=== PATIENT | male | born 1990 | race Caucasian/White ===

== ENCOUNTER 2017-02-03 13:43 | Emergency (ER) | payer BC, OTHER ==
--- NOTE | 2017-02-03 14:03 | ED ---
Abdominal Pain/Male - HPI Summary HPI Summary: 26M presents with sudden onset of mid epigastric pain today. He states it started after he was eating breakfast and it started right after. The pain was sharp and lasted 30-60secs. He has never had this pain before. He denies any chest pain or SOB. pain did not radiate anywhere. staying still helped. He had normal BM today. He admits to nausea with pain. He denies any vomiting, diarrhea or constipation. No dysuria, fever, flank pain, urgency, frequency or hematuira. no previous abdominal surgeries. no history of HTN or DM. does not smoke. no recent travel or surgeries. dad had heart attack at 32. He took 325 of ASA and the pain resolved. - History of Current Complaint Chief Complaint: EDAbdPain Stated Complaint: ABD PAIN Time Seen by Provider: 02/03/17 13:54 Pain Intensity: 2 - Allergies/Home Medications Allergies/Adverse Reactions: Allergies Allergy/AdvReac Type Severity Reaction Status Date / Time No Known Allergies Allergy Verified 02/03/17 13:49 PMH/Surg Hx/FS Hx/Imm Hx Endocrine/Hematology History: Denies: Hx Anticoagulant Therapy, Hx Diabetes Cardiovascular History: Denies: Hx Hypertension Infectious Disease History: No Infectious Disease History: Denies: Traveled Outside the [place] in Last 30 Days - Family History Known Family History: Positive: Cardiac Disease - Social History Alcohol Use: Occasionally Substance Use Type: Reports: Marijuana Smoking Status (MU): Never Smoked Tobacco Review of Systems Negative: Fever Negative: Chest Pain Negative: Shortness Of Breath Positive: Abdominal Pain - epigastric, Nausea. Negative: Vomiting All Other Systems Reviewed And Are Negative: Yes Physical Exam Triage Information Reviewed: Yes Vital Signs On Initial Exam: Initial Vitals Temp Pulse Resp BP Pulse Ox 98.1 F 86 17 141/80 98 02/03/17 13:47 02/03/17 13:47 02/03/17 13:47 02/03/17 13:47 02/03/17 13:47 Vital Signs Reviewed: Yes Appearance: Positive: Well-Appearing Skin: Positive: Warm, Dry Head/Face: Positive: Normal Head/Face Inspection Eyes: Positive: Normal, Conjunctiva Clear Respiratory/Lung Sounds: Positive: Clear to Auscultation, Breath Sounds Present , Other - nontender chest Cardiovascular: Positive: Normal, RRR Abdomen Description: Positive: Nontender, Soft Bowel Sounds: Positive: Present Musculoskeletal: Positive: Normal Neurological: Positive: Normal Psychiatric: Positive: Normal - Tania Coma Scale Coma Scale Total: 15 Diagnostics - Vital Signs Vital Signs Temp Pulse Resp BP Pulse Ox 02/03/17 13:47 98.1 F 86 17 141/80 98 - Laboratory Result Diagrams: 02/03/17 14:10 02/03/17 14:10 Lab Statement: Any lab studies that have been ordered have been reviewed, and results considered in the medical decision making process. - Ultrasound No standard instances Ultrasound Interpretation: Positive (See Comments) - IMPRESSION: 1. NO SONOGRAPHIC EVIDENCE OF GALLBLADDER STONES OR ACUTE INFLAMMATORY CHANGE OF THE GALLBLADDER. 2. AT THE RIGHT HEPATIC DOME THERE IS WHAT APPEARS TO BE A 6.8 CM CYST WITH A MOBILE 2.8 CM ECHOGENIC FOCUS IN THE LUMEN. A BENIGN ETIOLOGY IS FAVORED BUT THERE IS NO PRIOR IMAGING OF THE LIVER TO COMMENT ON CHRONICITY. CLINICALLY WARRANTED FURTHER CHARACTERIZATION COULD BE MADE WITH EITHER NONEMERGENT MULTIPHASE CONTRAST-ENHANCED MRI OR CT. Ultrasound Interpretation Completed By: Radiologist - EKG No standard instances Cardiac Rate: NL EKG Rhythm: Sinus Rhythm ST Segment: Normal EKG Interpretation: normal sinus rhythmn Abdominal Pain Fem Course/Dx - Course Course Of Treatment: 26M presents with sudden onset of mid epigastric pain today. He states it started after he was eating breakfast and it started right after. The pain was sharp and lasted 30-60secs. He has never had this pain before. He denies any chest pain or SOB. pain did not radiate anywhere. staying still helped. He had normal BM today. He admits to nausea with pain. He denies any vomiting, diarrhea or constipation. No dysuria, fever, flank pain , urgency, frequency or hematuira. no previous abdominal surgeries. no history of HTN or DM. does not smoke. no recent travel or surgeries. dad had heart attack at 32. He took 325 of ASA and the pain resolved. on exam abdomen soft nontender, chest nontender. will go cardiac work up and u/s gallbladder. labs wbc 6.6. d-dimer normal. troponin normal. LFT elevated. u/s gallbladder shows cyst. discussed with dr diaz who states could have CT done outpatient. got second troponin which neg. hear score 2. gave referral for primary. patient understand and agrees with plan. - Diagnoses Differential Diagnosis/HQI/PQRI: AMI, Gall Bladder Disease, Peptic Ulcer Disease Provider Diagnoses: Abdominal pain Discharge - Discharge Plan Condition: Good Disposition: HOME Patient Education Materials: Abdominal Pain (ED) Referrals: [facility] [place] PHYSICIAN REFERRAL [Outside] Catracho Robledo, [employer] [Primary Care Provider] - Additional Instructions: You need to follow up with primary about liver function tests and u/s results Return to ED if develop any new or worsening symptoms
[2017-02-03 14:25] LABS: Hematocrit 46 % (42-52); Hemoglobin 16.1 g/dl (14.0-18.0); Mean Corpuscular HGB Conc 35 g/dl (31-36); Mean Corpuscular Hemoglobin 29 pg (27-31); Mean Corpuscular Volume 84 fL (80-94); Mean Platelet Volume 7 um3 (7.4-10.4); Red Blood Count 5.47 10^6/ul (4.0-5.4); Red Cell Distribution Width 13 % (10.5-15); White Blood Count 6.6 10^3/ul (3.5-10.8)
[2017-02-03 14:43] LABS: Albumin 4.4 g/dL (3.2-5.2); BUN/Creatinine Ratio 20.3 (8-20); EGFR African American 181.2 (>60); EGFR Non-African American 140.9 (>60); Globulin 2.7 g/dL (2-4); Potassium 3.5 mmol/L (3.5-5.0); Total Bilirubin 1.1 mg/dL (0.2-1.0); Total Protein 7.1 g/dL (6.4-8.9)
--- NOTE | 2017-02-03 14:48 | RAD ---
HISTORY: Epigastric pain COMPARISONS: None TECHNIQUE: Multiple transverse and longitudinal ultrasound images were obtained of the right upper quadrant. FINDINGS: LIVER: At the right hepatic dome there is a partially cystic collection measuring 5 x 3.7 x 6.8 cm. Within the dependent portion of this apparently cystic collection is a 2.8 cm echogenic focus with no vascularity. Otherwise the liver is normal in attenuation and morphology. Normal hepatic and portal venous blood flow is duplicated with color flow imaging. There is no gross intrahepatic biliary duct dilatation. GALLBLADDER AND EXTRAHEPATIC BILIARY DUCT: The gallbladder is normal in appearance without intraluminal stones or other soft tissue masses. There is no pericholecystic fluid or gallbladder wall thickening. The common bile duct measures a maximum diameter of 3 mm. PANCREAS: The portions of the pancreas not obscured by bowel gas are normal in appearance. RIGHT KIDNEY: The right kidney is normal in size, morphology and echogenicity. AORTA AND IVC: The visualized portions are normal in appearance and not pathologically dilated. IMPRESSION: 1. NO SONOGRAPHIC EVIDENCE OF GALLBLADDER STONES OR ACUTE INFLAMMATORY CHANGE OF THE GALLBLADDER. 2. AT THE RIGHT HEPATIC DOME THERE IS WHAT APPEARS TO BE A 6.8 CM CYST WITH A MOBILE 2.8 CM ECHOGENIC FOCUS IN THE LUMEN. A BENIGN ETIOLOGY IS FAVORED BUT THERE IS NO PRIOR IMAGING OF THE LIVER TO COMMENT ON CHRONICITY. CLINICALLY WARRANTED FURTHER CHARACTERIZATION COULD BE MADE WITH EITHER NONEMERGENT MULTIPHASE CONTRAST-ENHANCED MRI OR CT.
[2017-02-03 15:03] LABS: C Reactive Protein 8.14 mg/L (< 5.00)
[2017-02-03 15:17] LABS: TSH (Thyroid Stimulating Horm) 0.84 mcIU/mL (0.34-5.60)
[2017-02-03 17:02] VITALS: BP 129/69
== END 2017-02-03 17:07 | disposition home or self-care (01) ==
LOC: ED 13:43
DX: R10.13 Epigastric pain (principal); R11.0 Nausea
CPT/HCPCS: 36415; 76705; 80053; 83690; 84443; 84484; 85025; 85379; 86140; 93005; 99282